=== PATIENT | male | born 1945 | race Caucasian/White ===

== ENCOUNTER 2023-08-25 14:52 | Emergency (ER) | payer MEDICARE, OTHER, SELFPAY ==
[2023-08-25 14:58] VITALS: BP 140/77
[2023-08-25] MEDS: OMNIPAQUE 50 ML PO (15:06)
[2023-08-25 16:07] VITALS: BP 136/77
[2023-08-25 16:29] LABS: % Basophils 0.9 % (0-2); % Eosinophils 0.4 % (0-6); % Immature Granulocytes 0.2 % (0-0.5); % Lymphocytes 21.3 % (20.5-51.1); % Neutrophils 68.2 % (42.2-75.2); Absolute Basophils 0.1 10^3/uL (0-0.2); Absolute Lymphocytes 1.2 10^3/uL (1.2-3.4); Absolute Monocytes 0.5 10^3/uL (0.1-0.6); Absolute Neutrophils 3.9 10^3/uL (1.4-6.5); Hematocrit 39.7 % (39.0-52.0); Hemoglobin 14.2 g/dL (13.0-18.0); Mean Corp Hgb Conc. 35.8 g/dL (33.0-37.0); Mean Corpuscular Hgb 32.1 pg (27.0-31.0); Mean Corpuscular Volume 89.6 fL (80.0-94.0); Mean Platelet Volume 9.1 fL (7.4-10.4); Nucleated Red Blood Cells % 0 % (-); Platelet Count 212 10^3/uL (130-400); Red Blood Cell Count 4.43 10^6/uL (4.70-6.10); Red Cell Dist. Width 12.8 % (11.5-14.5); Urine Albumin Negative (Neg - Trace); Urine Bilirubin Negative (Negative); Urine Character Clear (Clear); Urine Color Yellow; Urine Glucose Negative (Negative); Urine Ketone Negative (Negative); Urine Leukocyte Negative (Negative); Urine Nitrite Negative (Negative); Urine Occult Blood Negative (Negative); Urine Urobilinogen Negative (Neg - 1+); White Blood Cell Count 5.7 10^3/uL (4.8-10.8)
--- NOTE | 2023-08-25 16:43 | ED.GENMED ---
History of Present Illness
General
Chief Complaint: Abdominal Pain
Source: patient, records and family
Exam Limitations: none
Time Seen by Provider: 08/25/23 15:53
Nursing documentation reviewed up to this point in time: agreed with
Travel History
Have you had any contact with someone who has COVID-19?: No
Do you have any symptoms of coronavirus? Fever > 100 degrees, chills, cough, shortness of breath, sore throat, loss of taste or smell, muscle aches, or headache?: No
History of Present Illness
History of Present Illness:
78-year-old male status post bilateral inguinal herniorrhaphies by Dr. Castellanos presents with lower abdominal pain intermittent for about 3 weeks worsened today felt woozy no vomiting no diarrhea no fever chills no chest pain or shortness of breath no
dysuria or frequency initially thought it was referred pain from his back which has had previously
Past History
Past History
ED Past Medical History: Hypercholesterolemia and Other (Postoperative urinary retention status post hernia repair in April 2018)
ED Past Surgical History: Other (Hernia repair April 2018)
Social History
Tobacco: Non-smoker
Alcohol: Occasional
Drug: None
Personal:
Living: with family
Employment: Retired
Family History
Family History: CAD (Father [place] in his 80s) and Other (No aortic dissection)
Review of Systems
Review of Systems
All Other Systems: Not applicable
Constitutional: Denies fever or fatigue
EENT: Reports no symptoms
Respiratory: Reports no symptoms
Cardiac: Reports no symptoms
ABD/GI: Reports abdominal pain; Denies nausea or diarrhea
Phy Exam
Physical Exam
Physical Exam:
Physical Exam
General: no apparent distress, not acutely ill
Neck: supple.
Heart: s1/s2 regular rate and rhythm, no murmur. equal radial pulses.
Lungs: no acute respiratory distress. clear bilaterally
Abdomen: Soft minimal tenderness right lower quadrant no tenderness in the lower
Neuro: alert and oriented. no focal neurological deficits
Skin: no rash
Psychiatric: well kept. interactive and cooperative
Extremities: no edema
Course
Orders/Labs/Results
Orders:
Orders
08/25/23 15:05
Iohexol [Omnipaque] See Protocol PO NOW STA
08/25/23 15:54
Electrocardiogram (*1) Stat
Reason for Study: Abdominal Pain
Cardiac Monitoring- Treatment ONCE
EKG- Treatment ONCE
08/25/23 16:18
Complete Blood Count/With Diff Urgent
Comprehensive Metabolic Panel Urgent
Urinalysis Reflex To Culture Urgent
Date Specimen was Collected: 08/25/23
Time Specimen was Collected: 15:57
08/25/23 16:32
0.9% Sodium Chloride 1000 ml [Nss] 1,000 ml IV BOLUS
Iohexol [Omnipaque] See Protocol PO NOW STA
Ketorolac [Toradol] 30 mg IV NOW STA
Ondansetron Injectable [Zofran] 4 mg IV NOW STA
08/25/23 17:19
CT Abd/pel (oral only)-DH Only Urgent
Comment:
Reason For Exam: Right-sided pain apparently iv allergy
Iohexol [Omnipaque] See Protocol PO NOW STA
08/25/23 18:59
Hydrocodone 5/APAP 325 [Bailey 5/325] 1 tablet PO NOW STA
LevoFLOXacin [Levaquin] 500 mg PO NOW STA
Abnormal Lab Results
08/25/23
16:18
RBC 4.43 L 10^6/uL
(4.70-6.10)
MCH 32.1 H pg
(27.0-31.0)
Sodium 134 L mmol/L
(135-145)
Glucose 101 H mg/dl
(70-99)
08/25/23 16:18
08/25/23 16:18
Vital Signs
Initial and Last Documented VS:
Initial Vital Signs
Temp Pulse Resp BP Pulse Ox
98.1 F 82 18 140/77 99
08/25/23 14:58 08/25/23 14:58 08/25/23 14:58 08/25/23 14:58 08/25/23 14:58
Last Documented Vital Signs
Temp Pulse Resp BP Pulse Ox
98.1 F 65 12 136/77 98
08/25/23 14:58 08/25/23 17:15 08/25/23 17:15 08/25/23 16:07 08/25/23 17:15
MDM/Problems Addressed
Differential Diagnosis Includes:
SBO pain from hernia, appendicitis diverticulitis colitis referred pain from the back
MDM/Problems Addressed:
Abdominal pain
Chronic conditions affecting care: Previous abdomnial surgery
Acute Exacerbation and/or Progression of Chronic Illness: Previous abdomnial surgery
*Radiology
Radiology exam reviewed: preliminary read by ED provider
*Pulse Oximetry
Patient hypoxic: no
*Copyholder Interpretation
Rate: Copyholder- N/A
*Critical Care Note
Total Time (30-74mins, 75-104mins- exclusive of procedures): Not Applicable
Update Note
Update Note:
[address] report noted
Urinalysis noted
Patient appears comfortable, will start on Levaquin Flagyl outpatient PCP GI follow-up ER for worsening symptoms
ED Attending Note
-
Portions of this chart may have been created with voice recognition software.� Occasional wrong word or��sound alike� substitutions may have occurred due to the inherent limitations of voice recognition software.
Discharge Plan
Departure
Patient Disposition: Home (Routine Discharge)
Date of Disposition: 08/25/23
Time of Disposition: 19:01
Patient with high blood pressure during this ER visit?: No
Condition: Good
Covid-19: Not Applicable
Discharge Problem:
Diverticulitis
Instructions: Diverticulitis (DC)
Prescriptions:
New
levofloxacin 500 mg tablet
500 mg PO DAILY 9 Days Qty: 9 0RF
metronidazole 250 mg tablet
250 mg PO TID Qty: 21 0RF
hydrocodone-acetaminophen 5-325 mg tablet
1 tab PO Q8H PRN (Reason: Pain) Qty: 10 0RF
No Action
multivitamin 1 EACH tablet
1 ea PO DAILY
simvastatin 20 MG tablet
20 mg PO QPM
hydrocodone-acetaminophen 1 TABLET tablet
1 - 2 tab PO Q4HPRN PRN (Reason: moderate to severe pain) Qty: 20 0RF
Referrals:
Gerardo Timmons MD [Family Provider] - Next open appointment
Stephanie Baker MD [Active] - Next open appointment
Activity Restrictions/Additional Instructions:
[place] diet nothing fatty or spicy
Antibiotics as prescribed
Tylenol or Bailey every 4-6 hours for pain do not exceed #6 in any 24-hour period is that both contain acetaminophen
Follow-up with your primary care physician and gastroenterology
Interventions
Interventions:
YV-Nccbuu-Gqcsptywen Assessment Last Done: 08/25/23 16:24
[2023-08-25] MEDS: NSS 1000 IV (16:44)
[2023-08-25] MEDS: TORADOL 30 MG IV (16:45)
[2023-08-25] MEDS: ZOFRAN 4 MG IV (16:45)
[2023-08-25 16:48] LABS: ALT (SGPT) 16 U/L (0-50); AST (SGOT) 26 U/L (17-59); Albumin 3.9 g/dl (3.5-5.0); Alkaline Phosphatase 66 U/L (38-126); Blood Urea Nitrogen 13 mg/dl (9-20); Calcium 9.2 mg/dl (8.4-10.2); Carbon Dioxide 28 mmol/L (22-30); Chloride 102 mmol/L (98-107); Glucose 101 mg/dl (70-99); Potassium 4.2 mmol/L (3.5-5.1); Sodium 134 mmol/L (135-145); Total Bilirubin 0.7 mg/dl (0.2-1.3); Total Protein 6.7 g/dl (6.3-8.2); eGFR > 60.00
[2023-08-25] MEDS: LEVAQUIN 500 MG PO (19:05)
[2023-08-25 19:07] VITALS: BP 148/65
== END 2023-08-25 19:18 | disposition home or self-care (01) ==
LOC: EMR 14:52
PROVIDERS: EMERGENCY PHYSICIAN Emergency Medicine; FAMILY PHYSICIAN Family Medicine
DX: K57.32 Diverticulitis of large intestine without perforation or abscess without bleeding (principal); R42 Dizziness and giddiness; Z98.890 Other specified postprocedural states
CPT/HCPCS: 99285; 96374; 96375; 96361; 74176; 80053; 81003; 85025

== ENCOUNTER 2024-12-05 13:48 | Emergency (ER) | payer MEDICARE, OTHER, SELFPAY ==
[2024-12-05 13:51] VITALS: BP 151/80
[2024-12-05 14:27] LABS: % Basophils 0.5 % (0-2); % Eosinophils 0.2 % (0-6); % Immature Granulocytes 0.2 % (0-0.5); % Lymphocytes 15.6 % (20.5-51.1); % Monocytes 6.7 % (1.7-9.3); % Neutrophils 76.8 % (42.2-75.2); Absolute Lymphocytes 1.3 10^3/uL (1.2-3.4); Absolute Monocytes 0.6 10^3/uL (0.1-0.6); Absolute Neutrophils 6.4 10^3/uL (1.4-6.5); Hematocrit 42.7 % (39.0-52.0); Hemoglobin 14.7 g/dL (13.0-18.0); Mean Corp Hgb Conc. 34.4 g/dL (33.0-37.0); Mean Corpuscular Hgb 31.7 pg (27.0-31.0); Mean Platelet Volume 9.7 fL (7.4-10.4); Nucleated Red Blood Cells % 0 % (-); Platelet Count 233 10^3/uL (130-400); Red Blood Cell Count 4.64 10^6/uL (4.70-6.10); Red Cell Dist. Width 12.4 % (11.5-14.5); White Blood Cell Count 8.3 10^3/uL (4.8-10.8)
[2024-12-05 14:39] LABS: ALT (SGPT) 14 U/L (0-50); AST (SGOT) 21 U/L (17-59); Albumin 4.3 g/dl (3.5-5.0); Alkaline Phosphatase 66 U/L (38-126); Blood Urea Nitrogen 14 mg/dl (9-20); Calcium 8.9 mg/dl (8.4-10.2); Carbon Dioxide 27 mmol/L (22-30); Chloride 104 mmol/L (98-107); Glucose 99 mg/dl (70-99); Lipase 79 U/L (23-300); Potassium 4.6 mmol/L (3.5-5.1); Sodium 136 mmol/L (135-145); Total Bilirubin 0.9 mg/dl (0.2-1.3); Total Protein 7.3 g/dl (6.3-8.2); eGFR > 60.00
--- NOTE | 2024-12-05 16:31 | ED.GENMED ---
History of Present Illness
General
Chief Complaint: Abdominal Pain
Source: patient
Exam Limitations: none
Time Seen by Provider: 12/05/24 16:20
History of Present Illness
History of Present Illness:
79-year-old male sent in from urgent care for evaluation of left lower quadrant abdominal pain that started 2 to 3 days ago and got worse overnight. No fever or vomiting. He is moving his bowels and urinating without any difficulty. History of
hyper lipidemia otherwise. No other complaints at this time
Past History
Past History
ED Past Medical History: Hypercholesterolemia and Other (Postoperative urinary retention status post hernia repair in April 2018)
ED Past Surgical History: Other (Hernia repair April 2018)
Social History
Tobacco: Non-smoker
Alcohol: Occasional
Drug: None
Personal:
Living: with family
Employment: Retired
Family History
Family History: CAD (Father [place] in his 80s) and Other (No aortic dissection)
Phy Exam
Physical Exam
Physical Exam:
General: Well-appearing male no acute respiratory distress
HEENT: Normocephalic atraumatic
Heart: Regular rate and rhythm
Lungs: Clear no wheeze
Abdomen soft tender to the left lower quadrant no guarding or rebound
Extremities: No cyanosis
skin: warm, no rash
Course
Orders/Labs/Results
Orders:
Orders
12/05/24 13:57
Complete Blood Count/With Diff Urgent
Comprehensive Metabolic Panel Urgent
Lipase Urgent
12/05/24 16:29
CT Abd/pelvis W Iv Cont Urgent
Comment:
Reason For Exam: llq pain
0.9% Sodium Chloride 500 ml [Nss] 500 ml IV BOLUS
Ketorolac [Toradol] 15 mg IV NOW STA
Abnormal Lab Results
12/05/24
13:57
RBC 4.64 L 10^6/uL
(4.70-6.10)
MCH 31.7 H pg
(27.0-31.0)
Neutrophils % 76.8 H %
(42.2-75.2)
Lymphocytes % 15.6 L %
(20.5-51.1)
12/05/24 13:57
12/05/24 13:57
Vital Signs
Initial and Last Documented VS:
Initial Vital Signs
Temp Pulse Resp BP Pulse Ox
98.8 F 79 18 151/80 98
12/05/24 13:51 12/05/24 13:51 12/05/24 13:51 12/05/24 13:51 12/05/24 13:51
Last Documented Vital Signs
Temp Pulse Resp BP Pulse Ox
98.8 F 79 18 136/74 98
12/05/24 13:51 12/05/24 13:51 12/05/24 13:51 12/05/24 19:19 12/05/24 19:19
MDM/Problems Addressed
Differential Diagnosis Includes:
Left lower abdominal pain. Consider constipation versus renal colic versus diverticulitis or abscess
CT ordered of the abdomen pelvis with IV contrast.
*Critical Care Note
Total Time (30-74mins, 75-104mins- exclusive of procedures): Not Applicable
Update Note
Update Note:
Workup consistent with acute diverticulitis no evidence of abscess. Will start on antibiotics and discharge home. Return precautions given
ED Attending Note
-
Portions of this chart may have been created with voice recognition software.� Occasional wrong word or��sound alike� substitutions may have occurred due to the inherent limitations of voice recognition software.
Discharge Plan
Departure
Patient Disposition: Home (Routine Discharge)
Date of Disposition: 12/05/24
Time of Disposition: 19:28
Patient with high blood pressure during this ER visit?: No
Discharge Problem:
Acute diverticulitis
Instructions: Diverticulitis (DC)
Prescriptions:
New
amoxicillin-pot clavulanate 875-125 mg tablet
1 tab PO BID Qty: 20 0RF
hydrocodone-acetaminophen 5-325 mg tablet
1 tab PO Q8H PRN (Reason: Pain) Qty: 7 0RF
No Action
multivitamin 1 EACH tablet
1 ea PO DAILY
simvastatin 20 MG tablet
20 mg PO QPM
hydrocodone-acetaminophen 1 TABLET tablet
1 - 2 tab PO Q4HPRN PRN (Reason: moderate to severe pain) Qty: 20 0RF
levofloxacin 500 mg tablet
500 mg PO DAILY 9 Days Qty: 9 0RF
metronidazole 250 mg tablet
250 mg PO TID Qty: 21 0RF
hydrocodone-acetaminophen 5-325 mg tablet
1 tab PO Q8H PRN (Reason: Pain) Qty: 10 0RF
Referrals:
Gerardo Timmons MD [Family Provider] -
Activity Restrictions/Additional Instructions:
Drink plenty clear liquids. Use antibiotics as directed. Use pain medicine as needed for severe pain. Please return here for increasing pain fever vomiting or other concerning findings. Follow-up with your doctor otherwise
Interventions
Interventions:
*Risk Screen - Suicide Last Done: 12/05/24 13:51
*General Assessment Last Done: 12/05/24 13:51
*Neglect/Abuse Screening Last Done: 12/05/24 17:32
*ED- Fall Risk Assessment Last Done: 12/05/24 17:32
*ED COVID-19 Vaccine History Last Done: 12/05/24 17:32
OI-Psycfv-Rtcbsfgnfy Assessment Last Done: 12/05/24 17:32
Discharge Date and Time
Print Language: SINGAPOREAN
[2024-12-05 17:22] VITALS: BMI 26.2
[2024-12-05] MEDS: NSS 500 IV (17:26)
[2024-12-05] MEDS: TORADOL 15 MG IV (17:26)
[2024-12-05 17:29] VITALS: BP 147/78
[2024-12-05 18:00] VITALS: BP 144/68
[2024-12-05 19:19] VITALS: BP 136/74
[2024-12-05 19:48] VITALS: BP 165/78
[2024-12-05] MEDS: AUGMENTIN 875 MG/125 MG 1 TABLET PO (19:50)
[2024-12-05] MEDS: DILAUDID 0.5 MG IV (19:52)
== END 2024-12-05 20:10 | disposition home or self-care (01) ==
LOC: EMR 13:48
PROVIDERS: EMERGENCY PHYSICIAN Emergency Medicine; FAMILY PHYSICIAN Family Medicine
DX: K57.32 Diverticulitis of large intestine without perforation or abscess without bleeding (principal); E78.00 Pure hypercholesterolemia, unspecified; I25.10 Atherosclerotic heart disease of native coronary artery without angina pectoris; Z82.49 Family history of ischemic heart disease and other diseases of the circulatory system
CPT/HCPCS: 99284; 96374; 96375; 96361; 74177; 80053; 83690; 85025; Q9967

== ENCOUNTER 2024-12-11 16:01 | Inpatient (IN) | payer MEDICARE, OTHER, SELFPAY ==
[2024-12-11] VITALS (13 sets, daily range): BP systolic 113–167; BP diastolic 60–103; BMI 31.9; BMI 24.1
[2024-12-11 07:18] LABS: % Basophils 0.9 % (0-2); % Eosinophils 1.4 % (0-6); % Immature Granulocytes 0.2 % (0-0.5); % Lymphocytes 36.4 % (20.5-51.1); % Monocytes 9.5 % (1.7-9.3); % Neutrophils 51.6 % (42.2-75.2); Absolute Basophils 0.1 10^3/uL (0-0.2); Absolute Eosinophils 0.1 10^3/uL (0-0.7); Absolute Lymphocytes 2.1 10^3/uL (1.2-3.4); Absolute Monocytes 0.6 10^3/uL (0.1-0.6); Hematocrit 41.7 % (39.0-52.0); Hemoglobin 14.9 g/dL (13.0-18.0); Mean Corp Hgb Conc. 35.7 g/dL (33.0-37.0); Mean Corpuscular Hgb 32.3 pg (27.0-31.0); Mean Corpuscular Volume 90.5 fL (80.0-94.0); Mean Platelet Volume 9.2 fL (7.4-10.4); Nucleated Red Blood Cells % 0 % (-); Platelet Count 223 10^3/uL (130-400); Red Blood Cell Count 4.61 10^6/uL (4.70-6.10); Red Cell Dist. Width 12.4 % (11.5-14.5); White Blood Cell Count 5.8 10^3/uL (4.8-10.8)
[2024-12-11 07:28] LABS: ALT (SGPT) 15 U/L (0-50); AST (SGOT) 22 U/L (17-59); Albumin 4.5 g/dl (3.5-5.0); Alkaline Phosphatase 56 U/L (38-126); Blood Urea Nitrogen 11 mg/dl (9-20); Calcium 9.4 mg/dl (8.4-10.2); Carbon Dioxide 24 mmol/L (22-30); Chloride 106 mmol/L (98-107); Estimated Creatinine Clearance 97 ml/min; Glucose 103 mg/dl (70-99); Potassium 3.9 mmol/L (3.5-5.1); Sodium 139 mmol/L (135-145); Total Protein 7.4 g/dl (6.3-8.2); eGFR > 60.00
[2024-12-11 07:49] LABS: Urine Albumin Negative (Neg - Trace); Urine Bilirubin Negative (Negative); Urine Character Clear (Clear); Urine Color Yellow; Urine Glucose Negative (Negative); Urine Ketone 2+ (Negative); Urine Leukocyte Negative (Negative); Urine Nitrite Negative (Negative); Urine Occult Blood Negative (Negative); Urine Urobilinogen Negative (Neg - 1+)
[2024-12-11] MEDS: NSS 1000 IV ×2 (07:58→18:16)
[2024-12-11] MEDS: TORADOL 15 MG IV ×2 (07:59→18:20)
--- NOTE | 2024-12-11 08:03 | ED.GENMED ---
History of Present Illness
General
Chief Complaint: Abdominal Symptoms
Source: patient
Exam Limitations: none
Time Seen by Provider: 12/11/24 07:36
History of Present Illness
History of Present Illness:
79-year-old male presents for reevaluation. He was here 5 days ago diagnosed with diverticulitis and started on Augmentin. He was doing clear liquids for a while and progressed to a bland diet. He had been doing better up until last evening his
pain returned to the left lower abdomen and he had copious amounts of loose watery stool. No fever. The pain is persistent. No other complaints at this time
Past History
Past History
ED Past Medical History: Hypercholesterolemia and Other (Postoperative urinary retention status post hernia repair in April 2018)
ED Past Surgical History: Other (Hernia repair April 2018)
Social History
Tobacco: Non-smoker
Alcohol: Occasional
Drug: None
Personal:
Living: with family
Employment: Retired
Family History
Family History: CAD (Father [place] in his 80s) and Other (No aortic dissection)
Phy Exam
Physical Exam
Physical Exam:
General: Well-appearing male no acute respiratory distress
HEENT: Normocephalic atraumatic
Heart: RRR, no murmurs
Lungs: CTA bilaterally
Abd: soft, tender to left lower abdomen.
Skin: Warm, no rash
Course
Orders/Labs/Results
Orders:
Orders
12/11/24 07:05
Complete Blood Count/With Diff Urgent
Comprehensive Metabolic Panel Urgent
12/11/24 07:06
Urinalysis Reflex To Culture Urgent
Date Specimen was Collected: 12/11/24
Time Specimen was Collected: 07:05
12/11/24 07:53
CT Abd/pelvis W Iv Cont Urgent
Comment:
Reason For Exam: lower abodminal pain, diarrhea
0.9% Sodium Chloride 1000 ml [Nss] 1,000 ml IV BOLUS
Ketorolac [Toradol] 15 mg IV NOW STA
12/11/24 08:05
STOOL [C difficile Antigen & Toxins] Urgent
ERMA Source: Feces/Stool
Specimen Description:
Stool Culture Urgent
ERMA Source: Feces/Stool
Specimen Description:
12/11/24 09:20
HYDROmorphone [Dilaudid] 0.5 mg IV NOW STA
12/11/24 10:43
Lactic Acid Urgent
Abnormal Lab Results
12/11/24 12/11/24
07:05 07:06
RBC 4.61 L 10^6/uL
(4.70-6.10)
MCH 32.3 H pg
(27.0-31.0)
Monocytes % 9.5 H %
(1.7-9.3)
Glucose 103 H mg/dl
(70-99)
Urine Ketones 2+ A
(Negative)
12/11/24 07:05
12/11/24 07:05
Vital Signs
Initial and Last Documented VS:
Initial Vital Signs
Temp Pulse Resp BP Pulse Ox
97.8 F 73 16 146/70 100
12/11/24 06:59 12/11/24 06:59 12/11/24 06:59 12/11/24 06:59 12/11/24 06:59
Last Documented Vital Signs
Temp Pulse Resp BP Pulse Ox
97.8 F 82 16 166/103 98
12/11/24 06:59 12/11/24 10:00 12/11/24 10:00 12/11/24 10:00 12/11/24 10:00
MDM/Problems Addressed
Differential Diagnosis Includes:
Recurrent abdominal pain now with loose stool. Recent diagnosis of diverticulitis. Consider worsening diverticulitis versus colitis from antibiotics. Obtain stool culture. Repeat CT pending labs pending
*Critical Care Note
Total Time (30-74mins, 75-104mins- exclusive of procedures): Not Applicable
Update Note
Update Note:
Patient reevaluated multiple times still in significant pain. IV pain medicine was ordered. CT today demonstrates evidence suggestive of colitis. Question C. difficile. Cultures are pending. Lactic acid is normal. Do not suspect ischemic
colitis. Likely infectious. Patient denies any bloody diarrhea.
ED Attending Note
-
Portions of this chart may have been created with voice recognition software.� Occasional wrong word or��sound alike� substitutions may have occurred due to the inherent limitations of voice recognition software.
Discharge Plan
Departure
Patient Disposition: Admit
Date of Disposition: 12/11/24
Time of Disposition: 11:31
Presentation/result/management discussed w/ accepting MD/DO: Hospitalist
Discharge Problem:
Colitis
Prescriptions:
No Action
multivitamin 1 EACH tablet
1 ea PO DAILY
simvastatin 20 MG tablet
20 mg PO QPM
hydrocodone-acetaminophen 1 TABLET tablet
1 - 2 tab PO Q4HPRN PRN (Reason: moderate to severe pain) Qty: 20 0RF
levofloxacin 500 mg tablet
500 mg PO DAILY 9 Days Qty: 9 0RF
metronidazole 250 mg tablet
250 mg PO TID Qty: 21 0RF
hydrocodone-acetaminophen 5-325 mg tablet
1 tab PO Q8H PRN (Reason: Pain) Qty: 10 0RF
amoxicillin-pot clavulanate 875-125 mg tablet
1 tab PO BID Qty: 20 0RF
hydrocodone-acetaminophen 5-325 mg tablet
1 tab PO Q8H PRN (Reason: Pain) Qty: 7 0RF
Referrals:
Gerardo Timmons MD [Family Provider, Family Practice]
Interventions
Interventions:
*Risk Screen - Suicide Last Done: 12/11/24 06:59
*General Assessment Last Done: 12/11/24 06:59
*Neglect/Abuse Screening Last Done: 12/11/24 06:59
*ED- Fall Risk Assessment Last Done: 12/11/24 06:58
*ED COVID-19 Vaccine History Last Done: 12/11/24 06:58
IG-Qxkmnj-Ldaapuykqm Assessment Last Done: 12/11/24 06:59
Discharge Date and Time
Print Language: TOGOLESE
[2024-12-11] MEDS: DILAUDID 0.5 MG IV ×2 (09:25→11:39)
[2024-12-11 11:04] LABS: Lactic Acid 0.8 mmol/L (0.7-2.0)
--- NOTE | 2024-12-11 11:32 | HPS.HSE ---
Family Physician
-
Family Physician: Gerardo Timmons
Chief Complaint
-
Abd pain
History of Present Illness
79M no significant past medical history recently diagnosed with Diverticulitis and discharged from ED a few days ago on oral Augmentin. Patient reports gradual improvement in symptoms/pain since discharge until recent acute worsening LLQ abd pain
with associate watery nonbloody diarrhea last few days. Denies fever nausea vomiting. Repeat CT, in comparison to past CT, seems to show resolution diverticulitis but new enteritis. Vital signs stable on room air. Labwork unremarkable, no
significant Leukocytosis
Medical History
Past Medical History
Past Medical History: Reports Other (as above)
Past Surgical History: Reports Other (as above)
Social History
Tobacco: Non-smoker
Alcohol: Daily (daily two shots of whiskey)
Drug: None
Personal:
Living: With Family
Employment: Retired
Family History
Family History: CAD (Father from [place] in his 80s) and Other (Mother shortly after colostomy for severe diverticulitis)
Allergies / Home Medications
Allergies reflects when Allergies were last updated in [employer].
Home Medications with original date entered in [employer]
Allergy/Medication List:
Allergies
Allergy/AdvReac Type Severity Reaction Status Date / Time
IV Contrast Allergy light Uncoded 12/05/24 13:54
headed
Home Medications
multivitamin (Multiple Vitamins tablet) 1 ea PO DAILY 07/03/18
simvastatin 20 mg tablet 20 mg PO QPM 07/03/18
amoxicillin 875 mg-potassium clavulanate 125 mg tablet 1 tab PO BID #20 tabs 12/05/24
hydrocodone 5 mg-acetaminophen 325 mg tablet 1 tab PO Q8HPRN PRN severe Pain 12/11/24
Review of Systems
-
A 12 point ROS was completed and negative except as noted: Yes
Constitutional: Reports Other (as below)
Physical Exam
Vital Signs
Vital Signs
Temp Pulse Resp BP Pulse Ox
97.8 F 68 20 136/70 98
12/11/24 06:59 12/11/24 11:00 12/11/24 11:00 12/11/24 11:00 12/11/24 10:00
Physical Exam
General: Other (as below)
Laboratory Results
-
12/11/24 07:05
12/11/24 07:05
Laboratory Results
Lactic Acid 0.8 mmol/L (0.7-2.0) 12/11/24 10:43
Total Bilirubin 1.0 mg/dl (0.2-1.3) 12/11/24 07:05
AST 22 U/L (17-59) 12/11/24 07:05
ALT 15 U/L (0-50) 12/11/24 07:05
Alkaline Phosphatase 56 U/L (38-126) 12/11/24 07:05
Impression/Plan
-
ROS
General: Denies fever chills night sweats unexpected weight loss
Neuro: Denies seizure shaking loss of consciousness dizziness vertigo
Psych: denies depression hallucinations confusion manic episodes
Endocrine: Denies polyuria polydipsia polyphagia heat/cold intolerance
HEENT: Denies blindness visual disturbances epistaxis
Pulmonary: denies coughing hemoptysis sneezing sob dyspnea on exertion
Cardiovascular: denies chest pain palpitations leg swelling
Hematology: denies signs symptoms of anemia easy bruising/bleeding
Gastrointestinal: denies nausea vomiting reports watery nonbloody diarrhea for the past few days
Genito-Urinary: denies retention incontinence dysuria
Musculoskeletal: denies joint pain weakness
Dermatology: denies rash laceration bruising
Physical Exam
General: No pallor, cyanosis, or jaundice.
HEENT: Throat clear. PERRLA Normocephalic atraumatic
NECK: Supple. No JVD Carotid Bruits
RESPIRATORY: Lungs clear to auscultation. No crackles wheezes stridor
CVS: S1, S2 normal. RRR. No murmur, rub or gallop.
ABDOMEN: Soft, left-sided abdomen tenderness mild. No distension. BS+/normal.
EXTREMITIES: No peripheral cyanosis or edema.
DINING SERVER: AOx3 conversant coherent
IMPRESSION:
79M no significant past medical history recently diagnosed with Diverticulitis and discharged from ED a few days ago on oral Augmentin. Patient reports gradual improvement in symptoms/pain since discharge until recent acute worsening LLQ abd pain
with associate watery nonbloody diarrhea last few days. Denies fever nausea vomiting. Repeat CT, in comparison to past CT, seems to show resolution diverticulitis but new enteritis. Vital signs stable on room air. Labwork unremarkable, no
significant Leukocytosis
PLAN:
#Diverticulitis failed outpatient treatment versus colitis infectious/inflammatory/ischemic
MedSurg admit
Low residue diet as tolerated
IV antibiotics Zosyn for now
IV fluid support
Pain control prn Tylenol Toradol Dilaudid
GI ID eval
Probiotics
Follow-up stool studies including C. difficile norovirus
#Anxiety
PRN ativan 0.25 mg
DVT prophylaxis SCD
GI prophylaxis Protonix
Full code as per patient
Discussed with patient and patient's son Dillan
I spent a total of 75 minutes with the patient or on the floor. More than 50% of this time involved counseling and coordination of care.
[2024-12-11] MEDS: NSS 500 IV (11:33)
[2024-12-11 16:38] LABS: TSH Reflex To Free T4 1.97 uIU/ml (0.47-4.68)
--- NOTE | 2024-12-11 17:12 | CON.ID ---
Consultation
-
Date/Time Consultation Requested: December 11, 2024 165
Date/Time Consultation Performed: December 11, 2024 171
Requesting Provider: Dr. Nicolette Leong
Performing Provider: Dr. Vida Carrizales
Reason for Consultation: Recent diverticulitis on Augmentin now with worsening pain
Chief Complaint / Past History
Chief Complaint
Diarrhea and Abdominal pain
History of Present Illness
79-year-old male who recently presented to ER 12/05 due to left lower quadrant abdominal pain. CT showed mild diverticulitis involving the left anterolateral pelvis. He was discharged to home on Augmentin. His abdominal pain was improving at home.
He was slowly advancing his diet. However 2 days ago, he developed diarrhea. 'Liquid stool poured out of his rectum.' Yesterday he then started having mild left lower quadrant pain. Pain got worse overnight. Again he had large liquid stool
this morning. He came to the ER. No fevers or chills. He feels weak. In the ER CAT scan showed no wall thickening or inflammatory changes, there are moderate amount of fluid throughout the colon with air-fluid levels compatible with diarrheal
illness. He is started on Zosyn.
Past History
Additional Past Medical History:
Dyslipidemia
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
Mild diverticulitis (12/05/24)
Additional Past Surgical History:
Left inguinal hernia repair
Allergy History:
IV Contrast Allergy (Uncoded 12/05/24 13:54)
light headed
Medications Reviewed: Yes
Current Antibiotics:
Zosyn
Social History
Tobacco: Non-Smoker
Alcohol: Occasional
Drug: None
Personal:
Living: With Family
Family History
Family History: Not Pertinent
Review of Systems
Review of Systems
General: Change in Appetite; Negative Fever or Chills
HEENT: Negative Sinus Problems or Headache
Cardiovascular: Negative Chest Pain or Dyspnea
Respiratory: Negative Dyspnea or Cough
Gasteroenterology: Diarrhea; Negative Nausea or Vomiting
Genital / Urological: Negative Dysuria
Endocrine: Weakness
All systems: All other systems were reviewed and were negative
Vital Signs
Temp Pulse Resp BP Pulse Ox
97.8 F 75 14 149/78 99
12/11/24 06:59 12/11/24 16:16 12/11/24 16:16 12/11/24 16:00 12/11/24 16:16
Physical Exam
Physical Exam
Constitutional: No Acute Distress and Non-toxic
Eyes: No Conjunctival Hemorrhage and Sclera Anicteric
Cardiovascular: Regular Rate and S1/S2
Pulmonary: Clear
Gastrointestinal: Soft, Non Tender, Non Distended and Normal Bowel Sounds
Genito-Urinary: Negative CVA Tenderness
Extremities: Negative Edema
Neurological: AO x 3
Lab / Diagnostic Study Results
12/11/24 07:05
12/11/24 07:05
Abs Immat Gran (auto) 0.0 10^3/uL (0-0.05) 12/11/24 07:05
Absolute Neuts (auto) 3.0 10^3/uL (1.4-6.5) 12/11/24 07:05
Absolute Lymphs (auto) 2.1 10^3/uL (1.2-3.4) 12/11/24 07:05
Absolute Monos (auto) 0.6 10^3/uL (0.1-0.6) 12/11/24 07:05
Absolute Basos (auto) 0.1 10^3/uL (0-0.2) 12/11/24 07:05
Immature Gran % 0.2 % (0-0.5) 12/11/24 07:05
Neutrophils % 51.6 % (42.2-75.2) 12/11/24 07:05
Lymphocytes % 36.4 % (20.5-51.1) 12/11/24 07:05
Monocytes % 9.5 % (1.7-9.3) H 12/11/24 07:05
Eosinophils % 1.4 % (0-6) 12/11/24 07:05
Basophils % 0.9 % (0-2) 12/11/24 07:05
Lactic Acid 0.8 mmol/L (0.7-2.0) 12/11/24 10:43
Microbiology Results
12/11/24 CT a/p: Moderate amount of fluid throughout the colon with several air-fluid levels. Findings compatible with acute diarrheal illness/enteritis. There is extensive diverticular disease within the left colon, however no significant wall
thickening or inflammatory changes appreciated.
Assessment / Plan
# Suspect C. difficile diarrhea
# Recent mild diverticulitis treated with Augmentin with resolution on repeat CAT scan
-DC Zosyn.
-Await stool sample collection for C. difficile, stool cultures.
- After stool sample collected, start empiric oral vancomycin 125 mg 4 times daily.
- Follow clinically.
[2024-12-11 17:23] LABS: Total Thyroxine 7.78 ug/dl (5.5-11.0)
[2024-12-11] MEDS: NSS (PRESERVATIVE FREE) 10 ML IV (18:14)
[2024-12-11] MEDS: PROTONIX IV 40 MG IV (18:16)
[2024-12-11] MEDS: FLORASTOR 250 MG PO (20:47)
[2024-12-12] MEDS: FIRVANQ PO (00:11)
[2024-12-12] MEDS: FIRVANQ 125 MG PO ×2 (00:31→05:23)
[2024-12-12 03:00] VITALS: BP 105/50
[2024-12-12] MEDS: DILAUDID 0.5 MG IV (05:24)
[2024-12-12 06:00] VITALS: BMI 24.2
[2024-12-12 06:52] LABS: Hematocrit 35.9 % (39.0-52.0); Hemoglobin 12.5 g/dL (13.0-18.0); Mean Corp Hgb Conc. 34.8 g/dL (33.0-37.0); Mean Corpuscular Hgb 31.7 pg (27.0-31.0); Mean Corpuscular Volume 91.1 fL (80.0-94.0); Mean Platelet Volume 9.2 fL (7.4-10.4); Platelet Count 192 10^3/uL (130-400); Red Blood Cell Count 3.94 10^6/uL (4.70-6.10); Red Cell Dist. Width 12.3 % (11.5-14.5); White Blood Cell Count 4.2 10^3/uL (4.8-10.8)
[2024-12-12 07:14] LABS: Blood Urea Nitrogen 8 mg/dl (9-20); Calcium 8.1 mg/dl (8.4-10.2); Carbon Dioxide 24 mmol/L (22-30); Chloride 109 mmol/L (98-107); Estimated Creatinine Clearance 84 ml/min; Glucose 102 mg/dl (70-99); Potassium 3.9 mmol/L (3.5-5.1); Sodium 138 mmol/L (135-145); eGFR > 60.00
--- NOTE | 2024-12-12 07:14 | W.PN.HOSP.TC ---
Today's Communication/Plan
-
IVF support
follow stool cultures
pain control
simethicone prn gas discomfort
Assessment / Plan
Assessment / Plan
Physical Exam
General: No pallor, cyanosis, or jaundice.
HEENT: Throat clear. PERRLA Normocephalic atraumatic
NECK: Supple. No JVD Carotid Bruits
RESPIRATORY: Lungs clear to auscultation. No crackles wheezes stridor
CVS: S1, S2 normal. RRR. No murmur, rub or gallop.
ABDOMEN: Soft, left-sided abdomen tenderness mild. No distension. BS+/normal.
EXTREMITIES: No peripheral cyanosis or edema.
ACID CONDENSER: AOx3 conversant coherent
IMPRESSION:
79M no significant past medical history recently diagnosed with Diverticulitis and discharged from ED a few days ago on oral Augmentin. Patient reports gradual improvement in symptoms/pain since discharge until recent acute worsening LLQ abd pain
with associate watery nonbloody diarrhea last few days. Denies fever nausea vomiting. Repeat CT, in comparison to past CT, seems to show resolution diverticulitis but new enteritis. Vital signs stable on room air. Labwork unremarkable, no
significant Leukocytosis
PLAN:
#Diverticulitis failed outpatient treatment versus colitis infectious/inflammatory/ischemic
MedSurg admit
Low residue diet as tolerated
IV fluid support
Pain control prn Tylenol Toradol Dilaudid
GI eval appreciated
ID eval appreciated monitor off abx
Probiotics
C. difficile norovirus neg
Rest of stool studies pending
simethicone prn gas discomfort
#Anxiety
PRN ativan 0.25 mg (has not required)
DVT prophylaxis SCD
GI prophylaxis Protonix
Full code
Discussed with patient and patient's son Dillan
I spent a total of 50 minutes with the patient or on the floor. More than 50% of this time involved counseling and coordination of care.
Anticipated Discharge: 24 - 48 hours
Subjective/Interval History
-
Date of Service: December 12, 2024
No acute distress, appears comfortable at this time resting in bed. Reports diarrhea persistence along with gas abd discomfort.
Objective Data
-
Labs:
Laboratory Results
12/12/24
06:34
WBC 4.2 L
Hgb 12.5 L
Hct 35.9 L
Plt Count 192
Sodium Pending
Potassium Pending
Chloride Pending
Carbon Dioxide Pending
BUN Pending
Creatinine Pending
Glucose Pending
Calcium Pending
Vital Signs:
Vital Signs
Temp Pulse Resp BP Pulse Ox
98.0 F 71 16 105/50 98
12/12/24 03:00 12/12/24 03:00 12/12/24 03:00 12/12/24 03:00 12/12/24 03:00
I&O
12/11/24 12/12/24 12/13/24
06:59 06:59 06:59
Intake Total 840 / 840
Balance 840 / 840
[2024-12-12] MEDS: PROTONIX IV 40 MG IV (07:46)
[2024-12-12] MEDS: NSS (PRESERVATIVE FREE) 10 ML IV (07:46)
[2024-12-12] MEDS: THERAGRAN 1 TABLET PO (07:46)
[2024-12-12] MEDS: FLORASTOR 250 MG PO ×2 (07:46→20:11)
[2024-12-12 07:50] VITALS: BP 114/59
--- NOTE | 2024-12-12 08:02 | W.PN.ID1 ---
Date of Service
Date of Service: December 12, 2024
Today's Communication
Observe off abx.
Supportive care.
Assessment / Plan
#Diarrhea
# LLQ pain
# Recent mild diverticulitis treated with Augmentin with resolution on repeat CAT scan
- C. diff negative. DC po Vanco.
- Norovirus negative.
- Stool cx pending.
- Possibly abx-associated diarrhea.
- Continue to observe off abx for now.
#Additional Past Medical History:
Dyslipidemia
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
diverticulitis x 2
Left inguinal hernia repair
Chief Complaint
-: Other (Diarrhea, abd pain)
Subjective / Review of Systems
Had 2 episode of diarrhea overnight.
Still with LLQ pain.
Vital Signs / Physical Exam
Vital Signs
Vital Signs
Temp Pulse Resp BP Pulse Ox
98.3 F 68 17 114/59 97
12/12/24 07:50 12/12/24 07:50 12/12/24 07:50 12/12/24 07:50 12/12/24 07:50
Physical Exam
Constitutional: No Acute Distress
Cardiovascular: Regular Rate and S1/S2
Pulmonary: Clear
Gastrointestinal: Soft, Non Tender, Non Distended and Normal Bowel Sounds
Extremities: Negative Edema
Neurological: AO x 3
Objective Data
Lab Data
Lab Results
12/12/24 06:34
12/12/24 06:34
Estimated Creat Clear 84 ml/min 12/12/24 06:34
Lactic Acid 0.8 mmol/L (0.7-2.0) 12/11/24 10:43
Total Bilirubin 1.0 mg/dl (0.2-1.3) 12/11/24 07:05
AST 22 U/L (17-59) 12/11/24 07:05
ALT 15 U/L (0-50) 12/11/24 07:05
Alkaline Phosphatase 56 U/L (38-126) 12/11/24 07:05
Most recent labs reviewed.
Micro Results:
12/12/24 00:33 - Pending
Feces/Stool
12/12/24 00:33 Salmonella/Shigella Culture - Pending
Feces/Stool Campylobacter Culture - Pending
Shiga Toxin Test - Pending
12/11/24 CT a/p: Moderate amount of fluid throughout the colon with several air-fluid levels. Findings compatible with acute diarrheal illness/enteritis. There is extensive diverticular disease within the left colon, however no significant wall
thickening or inflammatory changes appreciated.
--- NOTE | 2024-12-12 08:24 | CON.GI ---
Consultation
-
Date/Time Consultation Requested: 12/11/24 1641
Date/Time Consultation Performed: 12/12/24 0900
Requesting Provider: Dr Leong
Performing Provider: Dr Daley / Alejandra Chapin PA-C
Reason for Consultation: diarrhea
Medical History
Chief Complaint / HPI
Chief Complaint: diarrhea, abdominal pain
History of Present Illness:
This is an 79 year old male with a past medical history of hyperlipidemia who was recently diagnosed with acute sigmoid diverticulitis (his initial episode, treated outpatient with oral Augmentin with improvement), who developed acute onset of
diarrhea and abdominal pain in the left lower quadrant 2 days ago. No fever, chills or vomiting. He has felt 'queasy.' Diarrhea described as loose, watery, non-bloody. The pain worsened so he presented to the ER yesterday. Labs in the ER were
essentially unremarkable, with no leukocytosis. He did have a repeat CT scan of the abdomen/pelvis showing resolution of the sigmoid diverticulitis, although extensive diverticular disease noted in the left colon. Moderate amount of fluid throughout
the colon with several air-fluid levels compatible with enteritis. Stool studies have been ordered, including C difficle, still pending. His last colonoscopy was 9 years ago and showed diverticulosis, internal hemorrhoids and a benign polyp. There
is no family history of colon cancer. He does note his mother might have had ulcerative colitis.
Past Medical History
Past Surgical History: Other (hernia)
Social History
Tobacco: Non-Smoker
Alcohol: Daily (2 drinks/night)
Drug: None
Personal:
Living: With Family
Employment: Retired
Family History
Family History: Reviewed & Not Pertinent (no family history of any GI malignancies; ?questionable UC (mother))
Allergies / Home Medications
Allergy/AdvReac Type Severity Reaction Status Date / Time
Iodinated Contrast Media Allergy IV Verified 12/11/24 17:49
CONTRAST
-LIGHTHEADED
�Medication �Instructions �Recorded
multivitamin (Multiple Vitamins 1 ea PO DAILY Supplement 07/03/18
tablet)
simvastatin 20 mg tablet 20 mg PO QPM High Cholesterol 07/03/18
amoxicillin 875 mg-potassium 1 tab PO BID #20 tabs 12/05/24
clavulanate 125 mg tablet
hydrocodone 5 mg-acetaminophen 325 1 tab PO Q8HPRN PRN severe Pain 12/11/24
mg tablet
Review of Systems
-
History Source: Patient
All other systems: A 12 pt ROS was Negative except as stated above in HPI
Vital Signs
Temp Pulse Resp BP Pulse Ox
98.3 F 68 17 114/59 97
12/12/24 07:50 12/12/24 07:50 12/12/24 07:50 12/12/24 07:50 12/12/24 07:50
Physical Exam
Exam
General: Well Developed, Well Nourished and No Apparent Distress
Respiratory: Clear
Cardiac: Regular Rhythm
GI: Soft, Non Distended, Normal Bowel Sounds and Tender (+mild tenderness of the left lower quadrant)
Skin: Warm and Dry
Neuro: AO x 3
Psych: Calm
Results
WBC 4.2 10^3/uL (4.8-10.8) L 12/12/24 06:34
Hgb 12.5 g/dL (13.0-18.0) L 12/12/24 06:34
Hct 35.9 % (39.0-52.0) L 12/12/24 06:34
MCV 91.1 fL (80.0-94.0) 12/12/24 06:34
Plt Count 192 10^3/uL (130-400) 12/12/24 06:34
Absolute Neuts (auto) 3.0 10^3/uL (1.4-6.5) 12/11/24 07:05
Sodium 138 mmol/L (135-145) 12/12/24 06:34
Potassium 3.9 mmol/L (3.5-5.1) 12/12/24 06:34
Chloride 109 mmol/L (98-107) H 12/12/24 06:34
Carbon Dioxide 24 mmol/L (22-30) 12/12/24 06:34
BUN 8 mg/dl (9-20) L 12/12/24 06:34
Creatinine 0.7 mg/dL (0.7-1.3) 12/12/24 06:34
Calcium 8.1 mg/dl (8.4-10.2) L 12/12/24 06:34
Total Bilirubin 1.0 mg/dl (0.2-1.3) 12/11/24 07:05
AST 22 U/L (17-59) 12/11/24 07:05
ALT 15 U/L (0-50) 12/11/24 07:05
Alkaline Phosphatase 56 U/L (38-126) 12/11/24 07:05
Diagnostic Image Results:
12/11/24 CT Abdomen/Pelvis:
1. Moderate amount of fluid throughout the colon with several air-fluid levels. Findings compatible with acute diarrheal illness/enteritis. There is extensive diverticular disease within the left colon, however no significant wall thickening or
inflammatory changes appreciated. No diverticular abscess appreciated. No pelvic free fluid.
2. Chronic mild left hydronephrosis secondary to chronic UPJ obstruction. Large left renal cyst.
12/05/24 CT Abdomen/Pelvis:
CT findings compatible with mild diverticulitis involving the left anterolateral pelvis. No evidence for abscess or free intraperitoneal air.
Coronary artery calcifications are noted. Please correlate with symptoms of and risk factors for coronary artery disease, with further workup as clinically appropriate.
Large cyst arising in the upper to mid left kidney, stable. There is dilation of the left calyces and renal pelvis with transition in caliber of the left ureteral pelvic junction. Findings appear stable to intravenous contrast-enhanced exam of
April 20, 2018, likely representing chronic UPJ obstruction. No evidence for loss of left renal parenchyma.
Bony degenerative changes as described.
Prior GI Procedures:
Colonoscopy: 02/2016 (Dr Goldsmith)
Diverticulosis in the sigmoid colon and in the
descending colon.
- One 3 mm polyp in the sigmoid colon. (benign colonic mucosa with lymphoid aggregate)
- Non-bleeding internal hemorrhoids.
Assessment / Plan
-
79 year old male with recent initial episode of acute sigmoid diverticulitis (dx'd 12/05/24, treated with oral Augmentin with improvement) presenting with recurrence of lower abdominal pain and watery diarrhea [address] showing resolution
of the diverticulitis but now with findings of enteritis with moderate amount of fluid throughout the colon with several air-fluid levels. Stool cultures are pending. ID has been consulted, recommending initiating treatment for suspected C
difficile.
IMPRESSION / PLAN:
Acute enteritis/diarrhea -- suspicious for C difficile
- stool cultures pending
- continue IV fluids
- patient tolerating low residue diet
- per ID, to initiate vancomycin 125mg QID empirically
Acute sigmoid diverticulitis (initial episode)
- with mild uncomplicated diverticulitis noted on CT 12/05/24, improved with oral Augmentin
- we discussed the need for eventual colonoscopy (in 6-8 weeks)
-
-
Thank you for consultation and allowing me to participate in the patient's care. Please call the geographic information systems manager GI physician during the after hours with any questions or concerns.
[2024-12-12] MEDS: NSS 1000 IV ×2 (08:25→22:43)
[2024-12-12] MEDS: TORADOL 15 MG IV (08:30)
[2024-12-12 11:37] LABS: Vitamin D, 25-OH*** 31.5 ng/mL (30-80)
[2024-12-12] MEDS: MYLICON 80 MG PO (12:13)
--- NOTE | 2024-12-12 14:00 | CM ---
Patient seen at bedside
IA completed
Dx: diverticulitis
patient states was here in the ED a week ago and dc home with antibiotic
CM role explained
Lives with his and adult son in a 2 story home, 2 steps to enter, flight of stairs to bedroom/bathroom. Powder room on .
PLOF: Independent, does not use assistive device
DME: Walker, wheelchair
Denies VN/Rehab
Denies insecurities
PCP: Gerardo Timmons
Pharmacy: [facility]
PLAN: Home, no needs anticipated, CM to continue to follow
[2024-12-12 15:26] VITALS: BP 123/58
[2024-12-12 23:00] VITALS: BP 137/75
[2024-12-13] MEDS: TORADOL 15 MG IV (03:18)
[2024-12-13 05:54] LABS: Hematocrit 37.9 % (39.0-52.0); Hemoglobin 13.3 g/dL (13.0-18.0); Mean Corp Hgb Conc. 35.1 g/dL (33.0-37.0); Mean Corpuscular Hgb 32.3 pg (27.0-31.0); Mean Platelet Volume 9.6 fL (7.4-10.4); Platelet Count 200 10^3/uL (130-400); Red Blood Cell Count 4.12 10^6/uL (4.70-6.10); Red Cell Dist. Width 12.5 % (11.5-14.5); White Blood Cell Count 5.7 10^3/uL (4.8-10.8)
[2024-12-13 06:00] VITALS: BMI 24.4
[2024-12-13] MEDS: DILAUDID 0.5 MG IV (06:17)
[2024-12-13 06:25] LABS: Blood Urea Nitrogen 10 mg/dl (9-20); Calcium 8.7 mg/dl (8.4-10.2); Carbon Dioxide 29 mmol/L (22-30); Chloride 107 mmol/L (98-107); Estimated Creatinine Clearance 84 ml/min; Glucose 97 mg/dl (70-99); Potassium 4.2 mmol/L (3.5-5.1); Sodium 139 mmol/L (135-145); eGFR > 60.00
--- NOTE | 2024-12-13 06:59 | W.PN.HOSP.TC ---
Today's Communication/Plan
-
discharge
Assessment / Plan
Assessment / Plan
Physical Exam
General: no acute distress. Appears comfortable, ambulating without issues or need for assist device
HEENT: Throat clear. PERRLA Normocephalic atraumatic
NECK: Supple. No JVD Carotid Bruits
RESPIRATORY: Lungs clear to auscultation. No crackles wheezes stridor
CVS: S1, S2 normal. RRR. No murmur, rub or gallop.
ABDOMEN: Soft, left-sided abdomen tenderness mild. No distension. BS+/normal.
EXTREMITIES: No peripheral cyanosis or edema.
CUTTER HELPER: AOx3 conversant coherent
IMPRESSION:
79M no significant past medical history recently diagnosed with Diverticulitis and discharged from ED a few days ago on oral Augmentin. Patient reports gradual improvement in symptoms/pain since discharge until recent acute worsening LLQ abd pain
with associate watery nonbloody diarrhea last few days. Denies fever nausea vomiting. Repeat CT, in comparison to past CT, seems to show resolution diverticulitis but new enteritis. Vital signs stable on room air. Labwork unremarkable, no
significant Leukocytosis
PLAN:
#Diverticulitis resolved
#Diarrhea Possible new onset gastroenteritis vs abx side effect, resolving
MedSurg admit
Low residue diet as tolerated
IV fluid support completed
Pain control prn Tylenol Toradol Dilaudid
GI and ID eval appreciated stable for discharge home
Probiotics
C. difficile norovirus neg
Rest of stool studies pending
#Anxiety
PRN ativan 0.25 mg (has not required)
DVT prophylaxis SCD
GI prophylaxis Protonix
Full code
Medically stable for discharge home with outpatient follow up recommendations
Total Time Preparing Discharge __40 minutes including examination of the patient, summary of the hospital stay, instructions for continuing care to all relevant caregivers; and preparation of discharge records, prescriptions, and referral
forms if necessary.
Anticipated Discharge: Today
Subjective/Interval History
-
Date of Service: December 13, 2024
Stools more formed. Overall simptoms improving including pain. Ambulating without issues or need for assist device. Tolerating diet. Denies new acute issues. Eager to go home.
Objective Data
-
Labs:
Laboratory Results
12/13/24
05:06
WBC 5.7
Hgb 13.3
Hct 37.9 L
Plt Count 200
Sodium 139
Potassium 4.2
Chloride 107
Carbon Dioxide 29
BUN 10
Creatinine 0.7
Glucose 97
Calcium 8.7
Vital Signs:
Vital Signs
Temp Pulse Resp BP Pulse Ox
98.3 F 69 20 137/75 98
12/12/24 23:00 12/12/24 23:00 12/12/24 23:00 12/12/24 23:00 12/12/24 23:00
I&O
12/11/24 12/12/24 12/13/24
06:59 06:59 06:59
Intake Total 840 / 840 840 / 840
Balance 840 / 840 840 / 840
[2024-12-13 07:36] VITALS: BP 131/66
[2024-12-13] MEDS: NSS (PRESERVATIVE FREE) 10 ML IV (07:38)
[2024-12-13] MEDS: FLORASTOR 250 MG PO (07:39)
[2024-12-13] MEDS: PROTONIX IV 40 MG IV (07:39)
[2024-12-13] MEDS: THERAGRAN 1 TABLET PO (07:39)
--- NOTE | 2024-12-13 09:19 | W.PN.GI.CBS2 ---
Today's Communication / Plan
-
OK for DC
Assessment / Plan
-
79 year old male with recent initial episode of acute sigmoid diverticulitis (dx'd 12/05/24, treated with oral Augmentin with improvement) presenting with recurrence of lower abdominal pain and watery diarrhea [address] showing resolution
of the diverticulitis but now with findings of enteritis with moderate amount of fluid throughout the colon with several air-fluid levels. Stool cultures are pending. ID has been consulted, recommending initiating treatment for suspected C
difficile.
IMPRESSION / PLAN:
Diarrhea most likely related to antibiotics and or possible acute gastroenteritis
continue probiotics
Stool C. difficile is negative agree with [place] vancomycin.noted input from Dr. Carrizales
Norovirus also negative, stool cultures are pending.
Tolerating low residue diet
Abdominal pain may be related to diverticular associated spasm
Okay to [place] home today, will sign off and will be available as needed
Acute sigmoid diverticulitis (initial episode)- with mild uncomplicated diverticulitis noted on CT 12/05/24, improved with oral Augmentin and repeat CT showed resolution
Subjective
Subjective
Date of Service: December 13, 2024
Stool C. difficile is negative and diarrhea is also improving. He did have abdominal pain last night which seems to have improved now. Tolerating diet
Objective
Data Reviewed
Laboratory Data:
Laboratory Results
12/13/24 05:06
12/13/24 05:06
Laboratory Results
Magnesium 2.0 mg/dl (1.6-2.3) 12/13/24 05:06
Total Bilirubin 1.0 mg/dl (0.2-1.3) 12/11/24 07:05
AST 22 U/L (17-59) 12/11/24 07:05
ALT 15 U/L (0-50) 12/11/24 07:05
Alkaline Phosphatase 56 U/L (38-126) 12/11/24 07:05
Vital Signs and I&O:
Vital Signs
Temp Pulse Resp BP Pulse Ox
98.6 F 67 14 131/66 100
12/13/24 07:36 12/13/24 07:36 12/13/24 07:36 12/13/24 07:36 12/13/24 07:36
I&O
12/12/24 12/13/24 12/14/24
06:59 06:59 06:59
Intake Total 840 / 840 840 / 840
Balance 840 / 840 840 / 840
Physical Exam
Physical Exam
Cardiology: Normal Sinus Rhythm
Pulmonary: Clear
GI: Soft, Non Distended, Non Tender and Normal Bowel Sounds
--- NOTE | 2024-12-13 09:34 | W.PN.ID1 ---
Date of Service
Date of Service: December 13, 2024
Today's Communication
Observe off abx.
Assessment / Plan
#Diarrhea- abx associated; resolving
# LLQ pain improving
# Recent mild diverticulitis treated with Augmentin with resolution on repeat CAT scan
- C. diff negative. DC po Vanco.
- Norovirus negative.
- Stool cx pending.
-observe off abx
#Additional Past Medical History:
Dyslipidemia
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
diverticulitis x 2
Left inguinal hernia repair
Chief Complaint
-: Other (Diarrhea, abd pain)
Subjective / Review of Systems
Feeling much improved. Stool more formed. LLQ pain episode last night controlled with pain med. Watching his diet.
Vital Signs / Physical Exam
Vital Signs
Vital Signs
Temp Pulse Resp BP Pulse Ox
98.6 F 67 14 131/66 100
12/13/24 07:36 12/13/24 07:36 12/13/24 07:36 12/13/24 07:36 12/13/24 07:36
Physical Exam
Constitutional: No Acute Distress
Cardiovascular: Regular Rate and S1/S2
Pulmonary: Clear
Gastrointestinal: Soft, Non Tender, Non Distended and Normal Bowel Sounds
Extremities: Negative Edema
Neurological: AO x 3
Objective Data
Lab Data
Lab Results
12/13/24 05:06
12/13/24 05:06
Estimated Creat Clear 84 ml/min 12/13/24 05:06
Lactic Acid 0.8 mmol/L (0.7-2.0) 12/11/24 10:43
Total Bilirubin 1.0 mg/dl (0.2-1.3) 12/11/24 07:05
AST 22 U/L (17-59) 12/11/24 07:05
ALT 15 U/L (0-50) 12/11/24 07:05
Alkaline Phosphatase 56 U/L (38-126) 12/11/24 07:05
Most recent labs reviewed.
Micro Results:
12/12/24 00:33 Salmonella/Shigella Culture - Preliminary
Feces/Stool Culture in Progress
Campylobacter Culture - Preliminary
Culture in Progress
Shiga Toxin Test - Pending
12/12/24 00:33 - Final
Feces/Stool Negative for Norovirus GI and GII.
12/12/24 00:34 C. difficile GDH Antigen & Toxins - Final
Feces/Stool Negative for toxigenic C.difficile
12/11/24 CT a/p: Moderate amount of fluid throughout the colon with several air-fluid levels. Findings compatible with acute diarrheal illness/enteritis. There is extensive diverticular disease within the left colon, however no significant wall
thickening or inflammatory changes appreciated.
Care Review
Plan reviewed with: Physician (Dr. Leong)
[2024-12-13] MEDS: COMPAZINE 5 MG IV (11:15)
[2024-12-13 14:58] VITALS: BP 143/72
--- NOTE | 2024-12-13 16:04 | W.DCSUMMARY ---
Discharge Summary
Discharge Data
Date of Admission: 12/11/24
Date of Discharge: 12/13/24
-
Pending Results: Yes
Additional Pending Results:
official stool culture results
Discharge Plan
-
Patient Disposition: Home (Routine Discharge)
Discharge Diagnosis/Procedures: Enteritis possibly secondary to antibiotics vs viral gastroenteritis
Diverticulitis resolved
Condition: Fair
Diet: Low Residue
Additional Diets: low residue diet for 24 hours then advance as tolerated.
Activity: As tolerated
Driving Restrictions: As prior to admission
Bathing Restrictions: None
Activity Restrictions/Additional Instructions:
Follow up with primary care provider in 1 week of discharge.
Percocet has been prescribed as needed for moderate severe pain.
Please follow up with your primary care provider and/or other healthcare provider involved in your care for refills and/or further adjustment to your medication regimen as necessary
Referrals:
Gerardo Timmons MD [Family Provider, Family Practice] - in one week
Prescriptions:
New
oxycodone-acetaminophen 5-325 mg Tablet
1 tab PO BIDPRN PRN (Reason: moderate severe pain) Qty: 10 0RF
Continued
multivitamin [Multiple Vitamins] 1 EACH tablet
1 ea PO DAILY
simvastatin 20 MG tablet
20 mg PO QPM
Discontinued
amoxicillin-pot clavulanate 875-125 mg tablet
1 tab PO BID Qty: 20 0RF
Rx Instructions:
patient to start 12/06/24 for 10 days
hydrocodone-acetaminophen 5-325 mg tablet
1 tab PO Q8HPRN PRN (Reason: severe Pain)
Rx Instructions:
Last filled 12/05/24 #7 x3 days
Discharge Orders:
Discharge Patient (As Directed); Ordered 12/13/24
Ordered By: Nicolette Leong
Discharge Date and Time
Print Language: GU[place]
== END 2024-12-13 17:05 | disposition home or self-care (01) | DRG 392 ==
LOC: 3 WEST ACU 16:01
PROVIDERS: Emergency Medicine; Physician Assistant; ADMITTING PHYSICIAN Internal Medicine; CONSULT PHYSICIAN Internal Medicine Gastroenterology; CONSULT PHYSICIAN Internal Medicine Infectious Disease; EMERGENCY PHYSICIAN Student in an Organized Health Care Education/Training Program; FAMILY PHYSICIAN Family Medicine
DX: A08.4 Viral intestinal infection, unspecified (principal); N13.1 Hydronephrosis with ureteral stricture, not elsewhere classified; I25.10 Atherosclerotic heart disease of native coronary artery without angina pectoris; N28.1 Cyst of kidney, acquired; E78.00 Pure hypercholesterolemia, unspecified; F41.9 Anxiety disorder, unspecified; Z82.49 Family history of ischemic heart disease and other diseases of the circulatory system; Z91.041 Radiographic dye allergy status; Z87.19 Personal history of other diseases of the digestive system
CPT/HCPCS: 74177; 80048; 80053; 81003; 82306; 83605; 83735; 84436; 84443; 85025; 85027; 87045; 87046; 87324; 87427; 87449; 87798; 96361; 96374; 96375; 96376; 99284; Q9967